=== PATIENT | female | born 1990 | race Caucasian/White ===

== ENCOUNTER 2020-09-20 20:53 | Emergency (ER) | payer OTHER, SELFPAY ==
[2020-09-20 20:57] VITALS: BP 182/92; PULSE 107; RESP 20; TEMP 36.6; O2SAT 99; BMI 34.3
[2020-09-20 21:15] VITALS: BP 146/98; PULSE 104; RESP 16
--- NOTE | 2020-09-20 21:23 | PC.NURSE ---
DR VERAS AT BEDSIDE FOR EVAL.
--- NOTE | 2020-09-20 21:32 | ED.EXTPRO ---
HPI - Extremity Problem General Chief complaint: Extremity Problem Stated complaint: leg swelling and redness Time Seen by Provider: 09/20/20 21:13 Source: patient Mode of arrival: ambulatory Limitations: no limitations History of Present Illness HPI Narrative: Patient comes to the emergency room complaining of a patch of erythematous skin in the left leg. Patient states it started about 3 days ago, gradually becoming red and spreading, warm to touch. Patient denies any injuries. Patient states that she has no calf pain, no chest pain, no shortness of breath. Patient denies fever or chills. Initially when the patient came to the emergency room, blood pressure 182/92, on recheck was 146 systolic Complaint: other Related Data Previous Rx's Medication Instructions Recorded cephalexin [Keflex] 750 mg PO BID #14 cap 09/20/20 doxycycline hyclate 100 mg PO BID #14 tab 09/20/20 Allergies Allergy/AdvReac Type Severity Reaction Status Date / Time No Known Allergies Allergy Verified 09/20/20 20:57 Review of Systems Review of Systems: Constitutional : No Weight loss, No Fever, No Chills, No Night Sweats, No Fatigue, No Malaise ENT/Mouth : No Hearing loss, No Ear Pain, No Nasal Congestion, No Sinus Pain, No Hoarseness, No sore throat, No Rhinorrhea, No Swallowing Difficulty Eyes: No Eye Pain, No Swelling, No Redness, No Foreign Body, No Discharge, No Vision Changes Cardiovascular : No Chest Pain, No SOB, No Dyspnea on Exertion, No Orthopnea, No Edema, No Palpitations Respiratory : No Cough, No Sputum, No Wheezing, No Smoke Exposure, No Dyspnea Gastrointestinal : No Nausea, No Vomiting, No Diarrhea, No Constipation, No abdominal Pain, No Hematochezia, No Melena Genitourinary : no irregular bleeding, No Dysuria, No Urinary Frequency, No Hematuria, No Urinary Incontinence, No Urgency, No Flank Pain, No Urinary Flow Changes, No Hesitancy Musculoskeletal : No joint pain, No Myalgias, No Joint Swelling Skin : Erythematous patch in the left leg Neuro : No Weakness, No Numbness, No Paresthesias, No Loss of Consciousness, No Dizziness, No Headache Psych : No Anxiety/Panic, No Depression, No SI/HI/AH/VH, No Social Issues, Heme/Lymph: No Bruising, No Bleeding,No Lymphadenopathy Endocrine : No Polyuria, No Polydipsia, No Temperature Intolerance [facility] Social History Social History Alcohol intake: current Alcohol intake frequency: holidays/special occasions only Smoking Status: Current every day smoker Smoked in Last 30 Days: Yes Use of substances other than those prescribed or required for medical reasons: No Physical Exam Vital Signs: Vital Signs: Last Vital Signs Temp 97.9 F 09/20/20 20:57 Pulse 107 H 09/20/20 20:57 Resp 20 09/20/20 20:57 BP 182/92 H 09/20/20 20:57 Pulse Ox 99 09/20/20 20:57 Body Mass Index 34.3 Appearance: Alert. Oriented X3. No acute distress. Eyes: Pupils equal, round and reactive to light. ENT: Pharynx normal. Neck: Normal inspection. Neck supple. No lymph nodes noted. No crepitus CVS: Normal heart rate and rhythm. Pulses normal. Normal S1 and S2 Respiratory: No respiratory distress. Breath sounds normal. No Wheezing. No rales Abdomen: Soft and nontender. No rigidity. No distention. good BS x4 Skin: Skin warm and dry. 5 cm x 4 cm erythematous patch in the medial aspect of the left calf, warm to touch, no swelling, no calf pain, no thigh pain Extremities: No lower extremity edema. No lower extremity edema. No Lacerations. No Rash Neuro: Oriented X 3. No motor deficit. No sensory deficit. Moving all extermities. No slurred speech. Course Course Course Narrative: I discussed with the patient her physical exam, likely cellulitis, unlikely to be a DVT. Wells criteria score of DVT: -2 Discharge Plan Discharge Clinical Impression: Cellulitis Qualifiers: Site of cellulitis: extremity Site of cellulitis of extremity: lower extremity Laterality: left Qualified Code(s): L03.116 - Cellulitis of left lower limb Patient Disposition: Home, Self-Care Instructions: Cellulitis (ED) Additional Instructions: Please follow-up with your primary care physician tomorrow. If you have any worsening or new symptoms, please return to the emergency room or call 911 Prescriptions: New cephalexin [Keflex] 750 mg capsule 750 mg PO BID Qty: 14 RF: 0 doxycycline hyclate 100 mg tablet 100 mg PO BID Qty: 14 RF: 0
[2020-09-20] MEDS: cephALEXin 250 MG CAPSULE PO (21:40)
--- NOTE | 2020-09-20 21:51 | PC.NURSE ---
REDNESS ON LEFT LOWER LEG MARKED WITH SKIN MARKER.
== END 2020-09-20 22:05 | disposition home or self-care (01) ==
LOC: HO.ED 22:02
PROVIDERS: Emergency Provider Emergency Medicine; PCP Family Medicine
DX: L03.116 Cellulitis of left lower limb (principal); F17.200 Nicotine dependence, unspecified, uncomplicated
CPT/HCPCS: 99283; 99284

== ENCOUNTER 2020-09-22 22:11 | Emergency (ER) | payer OTHER, SELFPAY ==
--- NOTE | ~2020-09-22 | US_ITS ---
EXAMINATION: US VENOUS ULTRASOUND WITH DOPPLER LOWER EXTREMITY, LEFT CLINICAL INFORMATION: Left leg DVT versus thrombophlebitis COMPARISON: None TECHNIQUE: Ultrasound of the deep veins is performed from the hip to the calf with compression sonography and color and pulse Doppler assessment. Spectral analysis with color-flow imaging is performed. FINDINGS: There is normal venous compression and respiratory variation and augmented flow. The visualized common femoral vein, superficial femoral vein, profunda femoral vein, popliteal vein, and the trifurcation region shows no evidence of deep venous thrombosis. There is no significant popliteal fossa cyst. No, there are superficial varicosities present that contain noncompressible thrombus. There is some mildly prominent left inguinal lymph nodes seen which are morphologically normal in appearance. US/US venous duplex LE LT IMPRESSION: No DVT demonstrated in the left lower extremity. There is superficial thrombophlebitis with thrombosed superficial veins present.
[2020-09-22 22:43] VITALS: BP 144/91; PULSE 86; RESP 18; TEMP 36.7; O2SAT 98; BMI 34.3
--- NOTE | 2020-09-23 00:03 | ED.SKABFB ---
HPI - Skin/Abscess/Foreign Bdy General Chief complaint: Skin/Abscess/Foreign Body Stated complaint: leg pain Time Seen by Provider: 09/23/20 00:02 Source: patient Mode of arrival: ambulatory Limitations: no limitations History of Present Illness HPI narrative: Patient was seen here on 09/20 for cellulitis of the left upper calf area on Keflex and doxycycline comes here for slight spread of the swelling and erythema. No fever no insect bite Related Data Previous Rx's Medication Instructions Recorded cephalexin [Keflex] 750 mg PO BID #14 cap 09/20/20 doxycycline hyclate 100 mg PO BID #14 tab 09/20/20 aspirin 325 mg PO DAILY #30 tab 09/23/20 Allergies Allergy/AdvReac Type Severity Reaction Status Date / Time No Known Allergies Allergy Verified 09/22/20 22:48 Review of Systems Review of Systems: Yes all other systems are reviewed and are negative [facility] Past Medical History Medical History No known health problems Social History Social History Alcohol intake: current Alcohol intake frequency: holidays/special occasions only Smoking Status: Current every day smoker Advance Directives: No Physical Exam Vital Signs: Vital Signs: Last Vital Signs Temp 98.1 F 09/22/20 22:43 Pulse 86 09/22/20 22:43 Resp 18 09/22/20 22:43 BP 144/91 H 09/22/20 22:43 Pulse Ox 98 09/22/20 22:43 Body Mass Index 34.3 Const: General: comfortable and no acute distress HENMT: Head: Yes normocephalic Eyes: General: appearance normal, both eyes and all related structures Resp: Effort & Inspection: normal respiratory effort Auscultation: clear to auscultation bilaterally Cardio: Rate: regular rate Rhythm: regular rhythm Heart sounds: S1 normal heart sound present and S2 normal heart sound present Extrem: Upper/lower leg/hip images: 1. Cord-like feeling surrounded by erythema? Thrombophlebitis 2. Cellulitic area without any fluctuancy MDM - Skin/Abscess/Foreign Bdy MDM Narrative Medical decision making narrative: Patient with superficial thrombophlebitis along with surrounding cellulitis already on Keflex and doxycycline advised to take aspirin daily Imaging Data Venous US: Radiologist's impression: tommyering Physician: Abraham Jj MD Date of Service: 09/23/20 Procedure(s): US venous duplex LE LT Accession Number(s): [id number] cc: Abraham Jj MD~ EXAMINATION: US VENOUS ULTRASOUND WITH DOPPLER LOWER EXTREMITY, LEFT CLINICAL INFORMATION: Left leg DVT versus thrombophlebitis COMPARISON: None TECHNIQUE: Ultrasound of the deep veins is performed from the hip to the calf with compression sonography and color and pulse Doppler assessment. Spectral analysis with color-flow imaging is performed. FINDINGS: There is normal venous compression and respiratory variation and augmented flow. The visualized common femoral vein, superficial femoral vein, profunda femoral vein, popliteal vein, and the trifurcation region shows no evidence of deep venous thrombosis. There is no significant popliteal fossa cyst. No, there are superficial varicosities present that contain noncompressible thrombus. There is some mildly prominent left inguinal lymph nodes seen which are morphologically normal in appearance. US/US venous duplex LE LT IMPRESSION: No DVT demonstrated in the left lower extremity. There is superficial thrombophlebitis with thrombosed superficial veins present. Discharge Plan Discharge Clinical Impression: Thrombophlebitis Patient Disposition: Home, Self-Care Instructions: Superficial Thrombophlebitis (ED) Additional Instructions: Continue antibiotic for skin infection around the clotted superficial vein in left leg Take baby aspirin daily Ibuprofen for pain Report to PCP ER if increased swelling /shortness of breath or calf swelling Prescriptions: New aspirin 325 mg tablet 325 mg PO DAILY Qty: 30 RF: 0 No Action cephalexin [Keflex] 750 mg capsule 750 mg PO BID Qty: 14 RF: 0 doxycycline hyclate 100 mg tablet 100 mg PO BID Qty: 14 RF: 0
== END 2020-09-23 01:23 | disposition home or self-care (01) ==
PROVIDERS: Emergency Provider Internal Medicine; PCP Family Medicine
DX: I80.02 Phlebitis and thrombophlebitis of superficial vessels of left lower extremity (principal); L03.116 Cellulitis of left lower limb; M79.662 Pain in left lower leg; F17.200 Nicotine dependence, unspecified, uncomplicated
CPT/HCPCS: 93971; 99284

== ENCOUNTER 2023-08-05 17:09 | Emergency (ER) | payer OTHER, SELFPAY ==
[2023-08-05 17:12] VITALS: BP 160/108; PULSE 113; RESP 18; TEMP 36.7; O2SAT 100; BMI 33.3
--- NOTE | 2023-08-05 17:12 | ED_ITS ---
HPI - General Adult General Chief complaint: General Medical Stated complaint: SOB/Not able to feel left side of body Time Seen by Provider: 08/05/23 21:57 Source: patient Mode of arrival: ambulatory Limitations: no limitations History of Present Illness HPI narrative: Patient is a 33 year old assigned female at with no reported medical history presenting to the emergency department today with left sided arm numbness, left leg numbness, and an episode of feeling more flush and cold sweats. Patient states that earlier today she drank an energy drink that was new to her and a coffee then shortly after had an episode of being flush and had cold sweats. Patient states that after that she noticed some numbness in her left upper arm and left upper leg. Patient states that the left leg has largely resolved and the arm persists. Patient denies any dizziness, lightheadedness, abdominal pain, nausea, vomiting, fever, chills, blurry vision, double vision, loss of vision, chest pain, difficulty breathing, shortness of breath, back pain, night sweats, pain with urination, increased urinary frequency, increased urinary urgency, blood in her urine or stool, syncope or a near syncopal episode, recent trauma or falls, bowel incontinence, bladder incontinence, bowel retention, bladder retention, or any other complaints at this time. Onset (ago): hour(s) Relieving factors: none Exacerbating factors: none Treatments prior to arrival: none Related Data Previous Rx's Medication Instructions Recorded cephalexin 750 mg capsule (Keflex) 750 mg PO BID #14 caps 09/20/20 doxycycline hyclate 100 mg tablet 100 mg PO BID #14 tabs 09/20/20 aspirin 325 mg tablet 325 mg PO DAILY #30 tabs 09/23/20 cyclobenzaprine 5 mg tablet 5 mg PO TID PRN muscle spasm 7 08/05/23 days #21 tabs prednisone 20 mg tablet 20 mg PO DAILY 7 days #7 tabs 08/05/23 Allergies Allergy/AdvReac Type Severity Reaction Status Date / Time raw vegetable Allergy Swelling Verified 08/05/23 17:16 raw fruits Allergy Swelling Uncoded 08/05/23 17:16 Review of Systems 2 Constitutional: Constitutional: Reports no additional constitutional complaints, Denies chills, Denies fever(s) and Denies night sweats Eyes: Eyes: Reports no additional eye complaints, Denies blurry vision, Denies change in vision, Denies diplopia, Denies eye discharge, Denies loss of vision and Denies eye pain ENT: Denies dizziness Cardiovascular: Cardiovascular: Reports no additional cardiovascular complaints, Denies chest pain, Denies lightheadedness, Denies Loss of Consciousness and Denies dyspnea Respiratory: Respiratory: Reports no additional respiratory complaints and Denies dyspnea Gastrointestinal: Gastrointestinal: Reports no additional gastrointestinal complaints, Denies abdominal pain, Denies melena, Denies hematochezia, Denies change in bowel habits and Denies change in stool character Genitourinary: Genitourinary: Denies hematuria, Denies urinary frequency, Denies dysuria, Denies urinary incontinence, Denies urinary hesitancy and Denies urinary urgency Musculoskeletal: Musculoskeletal: Reports no additional musculoskeletal complaints, Reports numbness (left upper arm and left upper leg) and Denies tingling Neurologic: Denies dizziness, Denies loss of vision, Reports numbness (left upper arm and left upper leg) and Denies tingling Psychiatric: Psychiatric: Reports no additional psychiatric complaints Endocrine: Endocrine: Reports no additional endocrine complaints Hematologic/Lymphatic: Hematologic/Lymphatic: Reports no additional hematologic/lymphatic complaints Allergic/Immunologic: Allergic/Immunologic: Reports no additional allergic/immunologic complaints PMFSH Past Medical History Attestation statement: The following information was validated with the patient. Source: old records reviewed and nursing notes reviewed Medical History No known health problems Social History Social History Alcohol intake: current Alcohol intake frequency: holidays/special occasions only Smoked in Last 30 Days: Yes Use of substances other than those prescribed or required for medical reasons: No Advance Directives: No Advance Directives Information Provided: No Patient : No Physical Exam ED Vital Signs: Vital Signs - 24 hr 08/05/23 17:12 08/05/23 21:51 08/05/23 22:27 Temperature 98.0 F 97.7 F 98.6 F Pulse Rate 113 H 84 83 Respiratory Rate 18 17 16 Blood Pressure 160/108 H 143/87 H 145/77 H Pulse Oximetry 100 98 98 Oxygen Delivery Method Room Air Room Air Room Air BMI result Body Mass Index 33.3 Const General: cooperative, no acute distress, alert and awake Nutritional Appearance: well nourished Orientation/consciousness: patient oriented x3 Limitations: no limitations HENMT Head: Yes normal to inspection and Yes atraumatic Ears: hearing grossly normal bilaterally and external ears normal General nose exam: Normal external nose present, no nasal discharge noted and no epistaxis Face and sinus: Yes normal facial exam, No abrasion and No laceration Mouth: Normal oral and palatal mucosa present, no drooling and no muffled voice Eyes General: appearance normal, both eyes and all related structures Periorbital: periorbital findings normal Eyelids: Yes eyelids normal Conjunctivae: conjunctivae normal Pupils: Equal, round and reactive pupils present EOM: EOMs intact bilaterally Neck Neck: Yes normal visual inspection, Yes full ROM and Yes no lymphadenopathy Chest Chest palpation & inspection: normal inspection of the chest Resp Effort & Inspection: normal respiratory effort and able to speak in complete sentences GI Inspection: Yes normal to inspection General: Yes no CVA tenderness Back/Spine/Pelvis Back: no CVA tenderness Cervical Spine: normal cervical lordosis and cervical ROM normal Thoracic/Lumbar Spine: thoracic and lumbar spine normal to inspection and Thoracic/lumbar spine scar(s) Pelvis: no pain with anterior-posterior compression Neuro General: patient oriented x3 and moves all extremities Cranial nerves: Yes Equal, round and reactive pupils present Cognition (Neuro): normal cognition Motor exam (neuro): 5/5 motor strength present throughout Sensory Exam: Normal double simultaneous stimulation for sensation Coordination: [id number] test normal Extrem General: Yes normal to inspection, Yes full ROM and Yes capillary refill normal Psych Appearance: grossly normal Mental Status: mental status grossly normal Affect: normal affect Attitude: cooperative Thought process: Normal thought process present Thought content: Normal thought content present Insight: Good insight present (Psych) Course Course Course Narrative: RME 33 year old female presents for evaluation of left arm numbness and tingling as well as left chest pain. This started after drinking an energy drink and a coffee. Plan for labs and EKG Medications Administered Discontinued Medications Generic Name Dose Route Start Last Admin Trade Name Freq PRN Reason Stop Dose Admin Cyclobenzaprine HCl 5 mg 08/05/23 22:13 08/05/23 22:24 Cyclobenzaprine Hcl 5 Mg Tablet PO 08/05/23 22:14 5 mg ONCE ONE Administration Ketorolac Tromethamine 15 mg 08/05/23 22:13 08/05/23 22:25 Ketorolac Tromethamine 15 Mg/Ml Vial IM 08/05/23 22:14 15 mg ONCE ONE Administration Medical Decision Making Medical Decision Making [facility] Narrative: Patient is a 33 year old assigned female at with no reported medical history presenting to the emergency department today after a near-syncope episode with mild left upper and left lower extremity numbness. Patient's physical exam was unremarkable. Patient's blood work was unremarkable. Patient had no neuro deficits. Patient's clinical presentation is most consistent with radiculopathy and a near syncopal episode. I explained my physical exam findings as well as all test results to the patient. I answered all questions asked by the patient. I stressed the importance of the patient taking her medication as prescribed. I stressed the importance of the patient following up with her primary care provider. I stressed the importance of the patient returning to the emergency department immediately if her symptoms were to worsen or if she were to develop any dizziness, shortness of breath, difficulty breathing, chest pain, blurry vision, loss of vision, nausea, vomiting, abdominal pain, fever, chills, back pain, or any other complaints. Patient verbalized agreement and understanding with this treatment plan and discharge. Differential Diagnosis Differential Diagnoses: The differential diagnosis associated with the presentation includes Radiculopathy Near syncope Caffeine sensitivity Admission/Observation Consideration of admission/observation: Escalation of care including admission/observation considered Patient would have been admitted to the hospital had her work up had any findings where hospital admission was appropriate and her clinical presentation warranted hospital admission. Lab Data [facility] Lab Attestation statement: I reviewed the patient's lab results. My interpretation of these studies and their corresponding values is that they are grossly normal. 08/05/23 18:02 08/05/23 18:02 Labs: Lab Results 08/05/23 Range/Units 18:02 WBC 9.3 (4.8-10.8) X10*3/uL RBC 4.49 (4.20-5.50) X10*6/uL Hgb 13.3 (12.0-16.0) g/dl Hct 40.3 (37.0-47.0) % MCV 89.8 (80.0-98.0) fL MCH 29.6 (27.0-33.0) pg MCHC 33.0 (31.0-35.0) g/dl RDW 14.1 (11.0-16.0) % Plt Count 351 (160-400) X10*3/uL MPV 8.9 L (9.4-12.3) fL Immature Gran % (Auto) 0.2 (0.0-0.4) % Neut % (Auto) 85.4 H (45-73) % Lymph % (Auto) 10.2 L (20-40) % Routt % (Auto) 3.8 (2-11) % Eos % (Auto) 0.1 (0-4) % Baso % (Auto) 0.3 (0-2) % Lymph # (Auto) 0.9 L (1.2-4.9) X10*3/uL Routt # (Auto) 0.4 (0.1-1.2) X10*3/uL Eos # (Auto) 0.0 (0.0-0.4) X10*3/uL Baso # (Auto) 0.0 (0.0-0.2) X10*3/uL Abs Immat Gran (auto) 0.02 (0.00-0.03) X10*3/uL Absolute Neuts (auto) 7.9 (2.0-8.3) x10*3/uL Absolute Nucleated RBC 0.000 (0.0-0.012) X10*3/uL Nucleated RBC % (auto) 0.0 (0.0-0.2) /100WBC Sodium 141 (135-145) mmol/L Potassium 3.4 (3.3-5.1) mmol/L Chloride 112 H (96-108) mmol/L Carbon Dioxide 20 L (22-29) mmol/L Anion Gap 12 (12-20) BUN 11 (9-16) mg/dL Creatinine 0.73 (0.5-1.4) mg/dL Estim Creat Clear Calc 124.2 Estimated GFR > 60 Random Glucose 93 (60-115) mg/dL Calcium 9.4 (8.4-10.2) mg/dL Magnesium 2.0 (1.6-2.6) mg/dL Total Bilirubin 0.4 (0.0-1.0) mg/dL AST 28 (5-31) U/L ALT 19 (0-31) U/L Alkaline Phosphatase 66 (39-117) U/L Troponin I High Sens < 2.7 (<3.5-17.0) ng/L Total Protein 7.4 (6.5-8.0) g/dL Albumin 4.4 (3.5-5.0) g/dL Lipase 17 (8-78) U/L Discharge Plan Discharge Clinical Impression: Cervical radiculopathy, Lumbar radiculopathy, Near syncope Patient Disposition: Home, Self-Care Instructions: Lumbar Radiculopathy (ED), Cervical Radiculopathy (ED), Near Syncope (ED) Additional Instructions: Follow up with your primary care provider. Return to the emergency department immediately if your symptoms worsen or if you develop any dizziness, shortness of breath, difficulty breathing, chest pain, blurry vision, loss of vision, nausea, vomiting, abdominal pain, fever, chills, back pain, or any other complaints. Prescriptions: New cyclobenzaprine 5 mg tablet 5 mg PO TID PRN (Reason: muscle spasm) 7 Days Qty: 21 0RF prednisone 20 mg tablet 20 mg PO DAILY 7 Days Qty: 7 0RF No Action cephalexin [Keflex] 750 mg capsule 750 mg PO BID Qty: 14 0RF doxycycline hyclate 100 mg tablet 100 mg PO BID Qty: 14 0RF aspirin 325 mg tablet 325 mg PO DAILY Qty: 30 0RF Referrals: Kim Paniagua MD [Primary Care Provider] - Stand Alone Forms: Work/School Release Interventions: ED Discharge Assessment Last Done: 08/05/23 22:28 Discharge Date/Time: 08/05/23 22:29 Print Language: [place]
[2023-08-05 18:07] LABS: MANUAL DIFF FLAG NO
[2023-08-05 18:21] LABS: Alanine Aminotransferase 19 U/L (0-31); Albumin Level 4.4 g/dL (3.5-5.0); Alkaline Phosphatase 66 U/L (39-117); Anion Gap 12 (12-20); Aspartate Amino Transferase 28 U/L (5-31); Bilirubin Total 0.4 mg/dL (0.0-1.0); Blood Urea Nitrogen 11 mg/dL (9-16); Calcium 9.4 mg/dL (8.4-10.2); Carbon Dioxide 20 mmol/L (22-29); Chloride 112 mmol/L (96-108); Creatinine Clr Calc Pharmacy 124.2; Estimated Glomerular Filt Rate > 60; Glucose Random 93 mg/dL (60-115); Lipase 17 U/L (8-78); Potassium 3.4 mmol/L (3.3-5.1); Sodium 141 mmol/L (135-145); Total Protein 7.4 g/dL (6.5-8.0)
[2023-08-05 18:29] LABS: Troponin-I High Sensitivity < 2.7 ng/L (<3.5-17.0)
[2023-08-05 18:34] LABS: Basophils Percent Auto 0.3 % (0-2); Eosinophils Percent Auto 0.1 % (0-4); Hematocrit 40.3 % (37.0-47.0); Hemoglobin 13.3 g/dl (12.0-16.0); Imm Gran Abs Auto 0.02 X10*3/uL (0.00-0.03); Imm Gran Pct Auto 0.2 % (0.0-0.4); Lymphocytes Absolute Auto 0.9 X10*3/uL (1.2-4.9); Lymphocytes Percent Auto 10.2 % (20-40); Mean Corpuscular Hemoglobin 29.6 pg (27.0-33.0); Mean Corpuscular Volume 89.8 fL (80.0-98.0); Mean Platelet Volume 8.9 fL (9.4-12.3); Monocytes Absolute Auto 0.4 X10*3/uL (0.1-1.2); Monocytes Percent Auto 3.8 % (2-11); Neutrophils Absolute Auto 7.9 x10*3/uL (2.0-8.3); Neutrophils Percent Auto 85.4 % (45-73); Platelet Count 351 X10*3/uL (160-400); Red Blood Count 4.49 X10*6/uL (4.20-5.50); Red Cell Distribution Width 14.1 % (11.0-16.0); White Blood Count 9.3 X10*3/uL (4.8-10.8)
[2023-08-05 21:51] VITALS: BP 143/87; PULSE 84; RESP 17; TEMP 36.5; O2SAT 98
--- NOTE | 2023-08-05 21:54 | PC.NURSE ---
pt from home, a&ox4, respirations even and unlabored. pt reporting onset of left sided chest pain, left sided numbness and epigastric pain after drinking coffee and a monster energy drink. pt reports drinking this same amount of caffiene often and denies having these sx prior. pt denies n/vd/
[2023-08-05] MEDS: Cyclobenzaprine HCl 5 MG TABLET PO (22:24)
[2023-08-05] MEDS: Ketorolac Tromethamine 15 MG/ML VIAL IM (22:25)
[2023-08-05 22:27] VITALS: BP 145/77; PULSE 83; RESP 16; TEMP 37; O2SAT 98
== END 2023-08-05 22:29 | disposition home or self-care (01) ==
PROVIDERS: Physician Assistant; Emergency Provider Internal Medicine; PCP Family Medicine
DX: R55 Syncope and collapse (principal); M54.12 Radiculopathy, cervical region; M54.16 Radiculopathy, lumbar region
CPT/HCPCS: 36415; 80053; 83690; 83735; 84484; 85025; 96372; 99284; 99285; J1885